=== PATIENT | female | born 1990 | race Caucasian/White ===

== ENCOUNTER 2020-02-23 08:55 | Outpatient (REF) | payer OTHER, SELFPAY | END 2020-02-23 08:56 | disposition home or self-care (01) | LOC: HO.LAB 08:55 | PROVIDERS: Visit Provider Obstetrics & Gynecology | DX: R87.612 Low grade squamous intraepithelial lesion on cytologic smear of cervix (LGSIL) (principal); Z97.5 Presence of (intrauterine) contraceptive device | CPT/HCPCS: 57454; 81025; 88305 ==

== ENCOUNTER → 2020-03-07 16:02 | Outpatient (BNVA) | payer SELFPAY | PROVIDERS: Visit Provider Obstetrics & Gynecology ==